=== PATIENT | male | born 1970 | race Caucasian/White ===

== ENCOUNTER 2023-12-09 05:51 | Day surgery (SDC) | payer BC, OTHER ==
[2023-12-06 14:28] LABS: BASOPHILS # (AUTO) 0.1 X10'3 (0-0.2); BASOPHILS % (AUTO) 0.7 % (0-1); EOSINOPHILS # (AUTO) 0.1 X10'3 (0-0.9); EOSINOPHILS % (AUTO) 1.2 % (0-6); LYMPHOCYTES # (AUTO) 2.4 X10'3 (1.1-4.8); LYMPHOCYTES % (AUTO) 23.4 % (21-51); MEAN CORPUSCULAR HEMOGLOBIN 31.9 PG (27.0-31.0); MEAN CORPUSCULAR HGB CONC 35.2 g/dL (33.0-36.5); MEAN CORPUSCULAR VOLUME 90.6 FL (78-98); MONOCYTES # (AUTO) 1.1 X10'3 (0-0.9); NEUTROPHILS # (AUTO) 6.4 X10'3 (1.8-7.7); NEUTROPHILS % (AUTO) 63.7 % (42-75); PRE OP HEMATOCRIT 47.3 % (42.0-52.0); PRE OP HEMOGLOBIN 16.6 g/dL (14.0-17.9); PRE OP PLATELET COUNT 197 X10'3 (140-440); PRE OP WHITE BLOOD COUNT 10.1 10'3 (4.8-10.8); RED BLOOD COUNT 5.22 X10'6 (4.70-6.10); RED CELL DISTRIBUTION WIDTH 12.8 % (11.5-14.5)
[2023-12-06 14:43] LABS: ALBUMIN 3.5 G/DL (3.4-5.0); ALBUMIN/GLOBULIN RATIO 0.9 (1.1-1.5); ALKALINE PHOSPHATASE 76 IU/L (46-116); BLOOD UREA NITROGEN 15 MG/DL (7-18); BUN/CREATININE RATIO 15.5 (10.0-20.0); CALCIUM 8.8 MG/DL (8.5-10.1); CHLORIDE 105 MMOL/L (99-107); CREATININE 0.97 MG/DL (0.60-1.10); PRE OP ALT 77 U/L (30-65); PRE OP ANION GAP 11 (8-16); PRE OP AST 60 U/L (10-37); PRE OP BILIRUB, TOTAL 0.5 MG/DL (0.0-1.0); PRE OP GLUCOSE 106 MG/DL (70-104); PRE OP POTASSIUM 4.6 MMOL/L (3.4-5.1); PRE OP SODIUM 141 MMOL/L (135-145); TOTAL CARBON DIOXIDE 25.5 MMOL/L (24-32); TOTAL PROTEIN 7.5 G/DL (6.4-8.2); eGFR 81 ML/MIN
[2023-12-09] VITALS (8 sets, daily range): BP systolic 116–140; BP diastolic 85–90; PULSE 65–72; RESP 13–18; TEMP 98.1; O2SAT 94–99
[~2023-12-09] VITALS: Ht 193 cm; Wt 165.1 kg
[~2023-12-09 05:51] MED LIST: NO HOME MEDS
[2023-12-09] MEDS: cefazolin 2gm/D5W 100mL 100 ML IV ONE (06:57)
[2023-12-09] MEDS: famotidine 20mg tablet PO ONE (06:57)
[2023-12-09] MEDS: ringers solution, lacted 1,000 ML IV SCH (06:57)
[2023-12-09] MEDS ORDERED: fentaNYL/PF 50MCG/1 ML 2ML syringe ONE (08:28)
[2023-12-09] MEDS ORDERED: ceFAZolin 1000mg inj ONE (08:29)
[2023-12-09] MEDS ORDERED: propofol inj 20 ML IV ONE (08:29)
[2023-12-09] MEDS ORDERED: midazolam 1 mg/ML 2ml injection ONE (08:29)
[2023-12-09] MEDS: BUPIVAcaine/PF 2.5mg/ml (0.25%) 10ml vial ONE (09:02)
[2023-12-09] MEDS: LIDOcaine 2% (20mg/ml) 5ml vial ONE (09:02)
[2023-12-09] MEDS ORDERED: morphine 2 MG/ML inj. syringe IV PRN (09:05)
[2023-12-09] MEDS ORDERED: ringers solution, lacted 1,000 ML IV SCH (09:05)
[2023-12-09] MEDS ORDERED: morphine 4 MG/ML inj SYRINge IV PRN (09:05)
[2023-12-09] MEDS ORDERED: meperidine/PF 25mg/ml syringe IV PRN ×3 (09:05)
[2023-12-09] MEDS ORDERED: proCHLORperazine 10 MG/2 ml inj IV PRN (09:05)
[2023-12-09] MEDS ORDERED: ondansetron/PF 4mg/2ml inj IV PRN (09:05)
== END 2023-12-09 09:36 | disposition home or self-care (01) ==
LOC: PAS 05:51
PROVIDERS: ATTEND Orthopaedic Surgery Hand Surgery
DX: G56.02 Carpal tunnel syndrome, left upper limb (principal); Z79.899 Other long term (current) drug therapy; Z87.891 Personal history of nicotine dependence; Z98.890 Other specified postprocedural states; Z88.1 Allergy status to other antibiotic agents
CPT/HCPCS: 29848; 36415; 80053; 82948; 85025; 93005; J0690; J2250; J2704; J3010; J3490; J7030; J7120; Z7506; Z7512; A4215; A6449; A7000

== ENCOUNTER 2023-12-30 06:32 | Day surgery (SDC) | payer BC ==
[~2023-12-30] VITALS: Ht 193 cm; Wt 164.8 kg
[2023-12-30] VITALS (7 sets, daily range): BP systolic 138–151; BP diastolic 89–109; PULSE 60–71; RESP 11–18; TEMP 98.3; O2SAT 95–97
[2023-12-30] MEDS: ceFAZolin inj. 3,000 MG in normal saline 100ml IV soln 100 ML IV ONE (05:30)
[~2023-12-30 06:32] MED LIST changes: +BUPIVAcaine/PF 2.5mg/ml (0.25%) 10ml vial ONE
[2023-12-30] MEDS ORDERED: ondansetron/PF 4mg/2ml inj IV PRN (06:45)
[2023-12-30] MEDS ORDERED: labetalol 20mg/4ml (5mg/ml) syringe IV PRN (06:45)
[2023-12-30] MEDS ORDERED: morphine 2 MG/ML inj. syringe IV PRN (06:45)
[2023-12-30] MEDS ORDERED: morphine 4 MG/ML inj SYRINge IV PRN (06:45)
[2023-12-30] MEDS ORDERED: ringers solution, lacted 1,000 ML IV SCH (06:45)
[2023-12-30] MEDS: famotidine 20mg tablet PO ONE (07:16)
[2023-12-30] MEDS: ringers solution, lacted 1,000 ML IV SCH (07:17)
[2023-12-30] MEDS ORDERED: LIDOcaine 2% (20mg/ml) 5ml vial ONE ×2 (07:35→08:55)
[2023-12-30 07:53] LABS: BASOPHILS % (AUTO) 0.5 % (0-1); EOSINOPHILS # (AUTO) 0.2 X10'3 (0-0.9); EOSINOPHILS % (AUTO) 1.8 % (0-6); LYMPHOCYTES # (AUTO) 2.8 X10'3 (1.1-4.8); LYMPHOCYTES % (AUTO) 27.8 % (21-51); MEAN CORPUSCULAR HEMOGLOBIN 31.2 PG (27.0-31.0); MEAN CORPUSCULAR HGB CONC 34.5 g/dL (33.0-36.5); MEAN CORPUSCULAR VOLUME 90.6 FL (78-98); MEAN PLATELET VOLUME 9.1 FL (7.4-10.4); MONOCYTES # (AUTO) 1.1 X10'3 (0-0.9); MONOCYTES % (AUTO) 10.6 % (2-12); NEUTROPHILS # (AUTO) 5.9 X10'3 (1.8-7.7); NEUTROPHILS % (AUTO) 59.3 % (42-75); PRE OP HEMATOCRIT 45.4 % (42.0-52.0); PRE OP HEMOGLOBIN 15.7 g/dL (14.0-17.9); PRE OP PLATELET COUNT 154 X10'3 (140-440); PRE OP WHITE BLOOD COUNT 9.9 10'3 (4.8-10.8); RED BLOOD COUNT 5.02 X10'6 (4.70-6.10); RED CELL DISTRIBUTION WIDTH 12.9 % (11.5-14.5)
[2023-12-30 08:08] LABS: ALBUMIN 3.4 G/DL (3.4-5.0); ALKALINE PHOSPHATASE 69 IU/L (46-116); BLOOD UREA NITROGEN 15 MG/DL (7-18); BUN/CREATININE RATIO 17.6 (10.0-20.0); CALCIUM 8.1 MG/DL (8.5-10.1); CHLORIDE 106 MMOL/L (99-107); CREATININE 0.85 MG/DL (0.60-1.10); PRE OP ALT 62 U/L (30-65); PRE OP ANION GAP 8 (8-16); PRE OP AST 47 U/L (10-37); PRE OP BILIRUB, TOTAL 0.7 MG/DL (0.0-1.0); PRE OP GLUCOSE 98 MG/DL (70-104); PRE OP POTASSIUM 4.1 MMOL/L (3.4-5.1); PRE OP SODIUM 140 MMOL/L (135-145); TOTAL CARBON DIOXIDE 26.5 MMOL/L (24-32); TOTAL PROTEIN 6.9 G/DL (6.4-8.2); eCRCL 125 ML/MIN; eGFR > 90 ML/MIN
[2023-12-30] MEDS ORDERED: propofol 10mg/ml 20ml vial IV ONE (08:40)
[2023-12-30] MEDS ORDERED: fentaNYL/PF 50MCG/1 ML 2ML syringe ONE (08:49)
[2023-12-30] MEDS ORDERED: MIDAZolam 1 MG/ML 5ML VIAL ONE (08:49)
[2023-12-30] MEDS: BUPIVAcaine/PF 2.5mg/ml (0.25%) 10ml vial IJ ONE (08:57)
== END 2023-12-30 10:01 | disposition home or self-care (01) ==
LOC: PAS 06:32
PROVIDERS: ATTEND Orthopaedic Surgery Hand Surgery
DX: G56.01 Carpal tunnel syndrome, right upper limb (principal); E66.01 Morbid (severe) obesity due to excess calories; Z87.891 Personal history of nicotine dependence; Z79.891 Long term (current) use of opiate analgesic; Z90.49 Acquired absence of other specified parts of digestive tract; Z90.89 Acquired absence of other organs; Z98.890 Other specified postprocedural states; Z68.41 Body mass index [BMI] 40.0-44.9, adult; Z88.1 Allergy status to other antibiotic agents; Z82.49 Family history of ischemic heart disease and other diseases of the circulatory system
CPT/HCPCS: 36415; 64721; 80053; 82948; 85025; J0690; J2250; J2704; J3010; J3490; J7030; J7120; Z7506; Z7512; A4215; A6449